=== PATIENT | female | born 1980 | race Caucasian/White ===

== ENCOUNTER 2021-01-03 15:20 | Emergency (ER) | payer OTHER ==
[~2021-01-03] VITALS: Ht 177.8 cm; Wt 129.3 kg
[2021-01-03] MEDS ORDERED: FLUOXETINE HCL60 MG PO (15:34)
[2021-01-03] MEDS ORDERED: XANAX 0.25 MG0.25 MG PO (15:35)
[2021-01-03] MEDS ORDERED: NEURONTIN800 MG PO (15:35)
[2021-01-03] MEDS ORDERED: ADDERALL 10 MG10 MG PO (15:35)
[2021-01-03] MEDS ORDERED: CEPHALEXIN500 MG PO (16:16)
[2021-01-03] MEDS ORDERED: LIDOCAINE VISC100 ML SWISH&SPIT (16:22)
[2021-01-03 16:28] VITALS: BP 142/84
--- NOTE | 2021-01-04 21:12 | NUR ---
PATIENT RESULTS OF NEGATIVE COVID TEST GIVEN TO PATIENT VIA PHONE AFTER IDENTIFIERS CONFIRMED. STREP CULTURE NOT RESULTED, PATIENT INFORMED THAT POSITIVE RESULTS WOULD BE CALLED IF THEY ARE POSITIVE
== END 2021-01-03 16:36 | disposition home or self-care (01) ==
LOC: ER 15:20
PROVIDERS: Physician Assistant
DX: J03.90 Acute tonsillitis, unspecified (principal); Z20.822 Contact with and (suspected) exposure to COVID-19; F32.9 Major depressive disorder, single episode, unspecified; F41.9 Anxiety disorder, unspecified; F90.9 Attention-deficit hyperactivity disorder, unspecified type; Z90.49 Acquired absence of other specified parts of digestive tract; Z90.710 Acquired absence of both cervix and uterus; Z79.899 Other long term (current) drug therapy; Z88.0 Allergy status to penicillin; Z91.041 Radiographic dye allergy status